=== PATIENT | female | born 1965 | race Caucasian/White ===

== ENCOUNTER 2016-09-27 11:46 | Emergency (ER) | payer OTHER ==
[~2016-09-27] VITALS: Ht 165.1 cm; Wt 88.0 kg
[~2016-09-27 11:46] MED LIST: ATEN25TA7 PO; ORE25 PO
[2016-09-27 12:12] VITALS: BP 255/150
[2016-09-27] MEDS ORDERED: NACL 0.9% 1,000 ML IV ONE (12:18)
[2016-09-27 12:56] LABS: BASOPHILS # (AUTO) 0.2 K/uL (0.00-0.22); EOSINOPHILS # (AUTO) 0.2 K/uL (0-0.4); EOSINOPHILS % (AUTO) 1.6 % (0.0-4.0); HEMOGLOBIN 14.3 g/dL (12.0-16.0); LYMPHOCYTES # (AUTO) 2.8 K/uL (2.5-16.5); LYMPHOCYTES % (AUTO) 23.8 % (20.5-51.1); MEAN CORPUSCULAR HEMOGLOBIN 29 pg (27-31); MEAN CORPUSCULAR HGB CONC 33 g/dL (33-37); MEAN CORPUSCULAR VOLUME 90 fL (80-94); MONOCYTES # (AUTO) 0.8 K/uL (0.8-1.0); MONOCYTES % (AUTO) 6.7 % (1.7-9.3); NEUTROPHILS # (AUTO) 7.6 K/uL (1.8-7.7); NEUTROPHILS % (AUTO) 65.9 % (42.2-75.2); PLATELET COUNT (AUTO) 287 K/uL (140-450); RED BLOOD CELL COUNT(AUTO) 4.87 MIL/uL (4.20-5.40); RED CELL DISTRIBUTION WIDTH 12.2 % (11.6-13.7); WHITE BLOOD COUNT (AUTO) 11.6 K/uL (4.8-10.8)
--- NOTE | 2016-09-27 12:56 | NUR ---
PATIENT PRESENTS TO ED WITH C/O TRANSIENT FACIAL PARESTHESIA LEFT SIDED LASTING 2 MINUTES PER PT;LEFT SHOULDER AND DIGITS PARESTHESIA AT 8AM TODAY DENIES HEADACHE , MILD LIGHT HEADED STATED BY PT;HX OFHTN, SUBDURAL HEMATOMA 03/2013; PT STATES SHE WAS BITTEN BY HER DOG LAST SEPTEMBER 23 IN LT HAND. DENIES N/V/D; SKIN IS PINK/WARM/DRY; AAOX4 WITH EVEN AND STEADY GAIT; LUNGS CLEAR BL; HR EVEN AND REGULAR; PT DENIES ANY FEVER, CP, SOB, OR COUGH AT THIS TIME; PATIENT STATES PAIN OF 0/10 AT THIS TIME; VSS; PATIENT POSITIONED FOR COMFORT; HOB ELEVATED; BEDRAILS UP X2; BED DOWN. ALL MONITORS IN PLACED.
[2016-09-27 12:59] LABS: BILIRUBIN,URINE NEGATIVE (NEGATIVE); BLOOD, URINE NEGATIVE (NEGATIVE); COLOR,URINE YELLOW (YELLOW); LEUKOCYTE ESTERASE ,URINE NEGATIVE (NEGATIVE); PH,URINE 5.5 (5.0-9.0); PROTEIN,URINE 1+ (NEGATIVE); UGLUCOSE NEGATIVE (NEGATIVE); UROBILINOGEN,URINE 0.2 EU/dL (0.2 - 1)
[2016-09-27 13:05] LABS: ANION GAP 12.7 (8-16); CALCIUM 8.8 mg/dL (8.5-10.1); CARBON DIOXIDE 28.5 mmol/L (21-32); CREATININE 0.8 mg/dL (0.6-1.3); POTASSIUM 4.2 mmol/L (3.5-5.1)
[2016-09-27 13:06] LABS: AMPHETAMINE, URINE NEG. ng/ml (NEG <=1000); BARBITURATE, URINE NEG. ng/ml (NEG <=200); BENZODIAZEPINE, URINE NEG. ng/mL (NEG <=200); CANNABINOID, URINE NEG. ng/mL (NEG <=50); COCAINE, URINE NEG. ng/mL (NEG <=300); NITRITE, URINE POSITIVE (NEGATIVE); OPIATE, URINE NEG. ng/mL (NEG <=2000); PHENCYCLIDINE SCREEN,URINE NEG. ng/mL (NEG <=25)
[2016-09-27 13:07] LABS: BACTERIA,URINE 1+ /HPF (None Seen); RBC,URINE 0-2 /HPF (0-5); WBC,URINE 0-2 /HPF (0-5)
[2016-09-27 13:08] LABS: INR 0.9 (0.8-1.2); PARTIAL THROMBOPLASTIN TIME 28.5 secs (22-35.6); PROTHROMBIN TIME 9.6 secs (10.8-13.4)
[2016-09-27 13:08] LABS: MUCUS,URINE 1+ /LPF (None Seen)
[2016-09-27 13:09] LABS: APPEARANCE,URINE SLIGHTLY HAZY (CLEAR)
[2016-09-27 13:11] LABS: ALBUMIN 3.9 g/dL (3.4-5.0); BILIRUBIN,DIRECT 0.1 mg/dL (0.0-0.3); TOTAL BILIRUBIN 0.3 mg/dL (0.0-1.0); TOTAL PROTEIN, SERUM 8.8 g/dL (6.4-8.2)
[2016-09-27] MEDS ORDERED: cefTRIAXone 1,000 MG VIAL ONE (14:00)
--- NOTE | 2016-09-27 14:02 | NUR ---
RECHECKED BP 4 X ;STEPHANIE OF 214/117;NOTIFIEED ER MD;ALL MONITORS IN PLACED;WILL CONTINUE TO MONITOR PT.
[2016-09-27] MEDS ORDERED: cloNIDine 0.1 MG TAB PO ONE ×2 (14:10→15:15)
--- NOTE | 2016-09-27 15:10 | NUR ---
RECHECKE BP FROM TIME TO TIME;BP STILL HIGH;NOTIFIED ERMD.ALL MONITORS IN PLACED;WILL CONTINUE TO MONITOR PT.
[2016-09-27] MEDS ORDERED: LABETALOL 100 MG/20 ML VIAL IVP ONE (16:00)
--- NOTE | 2016-09-27 16:20 | NUR ---
PT RESTING ON BED;NO ACUTE DISTRESS NOTED;ALL MONITORS IN PLACED;WILL CONTINUE TO MONITOR PT.
--- NOTE | 2016-09-27 17:27 | NUR ---
PT SLEEPING AT THIS TIME BP OF 180/96 KS OF 69;02 SAT 98 ROOM AIR;ALL MONITORS IN PLACED.WILL CONTINUE TO MONITOR IN PLACED.
--- NOTE | 2016-09-27 18:10 | NUR ---
Patient discharged with v/s stable. Written and verbal after care instructions given and explained. Patient alert, oriented and verbalized understanding of instructions. Ambulatory with steady gait. All questions addressed prior to discharge. ID band removed. Patient advised to follow up with PMD. Rx of KEFLEX AND TYLENOL given. Patient educated on indication of medication including possible reaction and side effects. Opportunity to ask questions provided and answered.
[2016-09-27 18:12] VITALS: BP 179/99
== END 2016-09-27 18:10 | disposition home or self-care (01) ==
LOC: MED 11:46
DX: N39.0 Urinary tract infection, site not specified (principal); F10.10 Alcohol abuse, uncomplicated; I10 Essential (primary) hypertension; Z88.5 Allergy status to narcotic agent; Z90.710 Acquired absence of both cervix and uterus
CPT/HCPCS: 36415; 70450; 71010; 80053; 80076; 80305; 81001; 85025; 85610; 85730; 87086; 93005; 96361; 96365; 96375; 99285; G0482; J0696; J3490; J7030; J7060